=== PATIENT | male | born 1990 | race American Indian/Alaskan Native ===

== ENCOUNTER 2020-08-06 11:43 | Emergency (ER) | payer BC ==
[2020-08-06] MEDS ORDERED: ASPIRIN 325 MG TAB PO ONE ×2 (12:09→17:04)
--- NOTE | 2020-08-06 12:49 | XRay Report ---
CHEST 2 VIEWS INDICATION: chest pain and tightness after drug use. COMPARISON: FINDINGS: Support devices: None. Heart: Within normal limits. Lungs: No acute air space or interstitial disease. Pleura: No significant pleural effusion. No pneumothorax. Additional findings: None. IMPRESSION: 1. No acute findings. Signer Name: Tony Senior MD Signed: 08/06/2020 12:44 PM Workstation Name: [id number]
[2020-08-06 12:59] LABS: Amphetamine Screen,Urine Negative; Benzodiazepines Screen,Urine Negative; Cannabinoid Screen,Urine Negative; Methadone Screen,Urine Negative; Opiate Screen,Urine Negative
[2020-08-06 13:17] LABS: Basophils % (Auto) 0.6 % (0.0-1.8); Eosinophils % (Auto) 0.2 % (0.0-4.3); Hematocrit 40.5 % (35.5-45.6); Hemoglobin 13.7 gm/dl (11.8-15.2); Lymphocytes # (Auto) 1.7 K/mm3 (1.2-5.4); Lymphocytes % (Auto) 20.4 % (13.4-35.0); Mean Corpuscular HGB Conc 34 % (32-34); Mean Corpuscular Volume 91 fl (84-94); Monocytes # (Auto) 0.5 K/mm3 (0.0-0.8); Monocytes % (Auto) 6.1 % (0.0-7.3); Platelet Count 299 K/mm3 (140-440); Red Blood Count 4.48 M/mm3 (3.65-5.03); Red Cell Distribution Width 14.2 % (13.2-15.2)
[2020-08-06 13:38] LABS: Alanine Aminotransferase 34 units/L (7-56); Albumin 4.8 g/dL (3.9-5); BUN/Creatinine Ratio 10; Blood Urea Nitrogen 8 mg/dL (9-20); Calcium 9.9 mg/dL (8.4-10.2); Hemolysis Index 5
[2020-08-06 13:56] LABS: Cocaine Screen,Urine Positive
--- NOTE | 2020-08-06 13:56 | Emergency Department Report ---
ED General Adult HPI - General Chief complaint: Overdose Stated complaint: CHEST PAIN, FAST HEART BEAT, SOB Time Seen by Provider: 08/06/20 13:24 Source: patient Mode of arrival: Ambulatory Limitations: No Limitations - History of Present Illness Initial comments: 30-year-old male patient presents to the emergency department with complaints of chest tightness, palpitations, and shortness of breath starting last night. Prior to the onset of his symptoms, patient was at a [employer], where his friends convinced him to try an unknown drug. Patient states he took a pill by mouth. He did not inject or inhale any substances. He has not used any illicit amado bstances in over 12 hours. His shortness of breath and palpitations have resolved but his chest tightness persists. No history of hypertension, diabetes, hyperlipidemia. Denies fever, chills, cough, syncope, seizure, lower extremity pain/swelling. Denies all other complaints at this time. - Related Data Allergies Allergy/AdvReac Type Severity Reaction Status Date / Time No Known Allergies Allergy Unverified 08/06/20 12:04 ED Review of Systems ROS: Stated complaint: CHEST PAIN, FAST HEART BEAT, SOB Other details as noted in HPI Other: GENERAL: Negative for fever, chills, weight change, anorexia, fatigue. ENT: Negative for ear pain, difficulty hearing, sore throat, nasal congestion, epistaxis. CARDIOVASCULAR: Positive for chest pain and palpitations PULMONARY: Positive for shortness of breath. GASTROINTESTINAL: Negative for abdominal pain, nausea, vomiting, diarrhea, c onstipation. MUSCULOSKELETAL: Negative for joint pain, joint swelling, myalgias, back pain, neck pain. NEUROLOGICAL: Negative for headache, seizure, syncope, paresthesias, weakness. INTEGUMENTARY: Negative for erythema, rash, diaphoresis, laceration, ecchymosis. HEMATOLOGICAL: Negative for hemoptysis, hematemesis, hematochezia, hematuria. PSYCHIATRIC: Negative for hallucinations, suicidal ideation, homicidal ideation, anxiety, depression. ED Past Medical Hx - Past Medical History Previous Medical History?: No - Surgical History Past Surgical History?: No - Social History Smoking Status: Current Every Day Smoker Substance Use Type: Alcohol, Marijuana ED Physical Exam - General Limitations: No Limitations - Other Other exam information: General: Awake and alert. No acute distress. Head: Atraumatic, normocephalic. Eyes: EOMI. Pupils are equal and round. Normal sclera and conjunctiva. ENT: Oral mucosa is moist. Normal pharyngeal exam. Neck: Supple. No lymphadenopathy. Pulmonary: No respiratory distress. Clear to auscultation bilaterally. Cardiac: Regular rate and rhythm. Pulses are palpable and equal bilaterally. No lower extremity cyanosis or edema. Skin: Warm and dry. No rashes. Abdomen: Soft, non-tender, non-protuberant. No guarding, rigidity, or rebound. Bowel sounds are normal. No organomegaly or masses noted. Back: Normal alignment. No CVA tenderness. Extremities: Symmetrical. Full range of motion intact. Neurological: Alert and oriented, appropriately interactive, no focal deficits. Psych: Cooperative. Appropriate mood and affect. Speech is evenly metered. Thoughts are logically construed. ED Course Vital Signs 08/06/20 08/06/20 12:05 17:20 Temperature 98.4 F Pulse Rate 108 H 78 Respiratory 20 15 Rate Blood Pressure 145/93 Blood Pressure 140/93 [Left] O2 Sat by Pulse 100 100 Oximetry ED Medical Decision Making - Lab Data Result diagrams: 08/06/20 12:39 08/06/20 12:39 - EKG Data 08/06/20 13:56 EKG shows normal sinus rhythm with a ventricular rate of 90 bpm. Left axis deviation. Normal OH interval. Normal QT interval. Good R wave progression. No ST segment changes. Over read by attending emergency physician, who agrees with this interpretation. 08/06/20 18:51 EKG shows normal sinus rhythm with a ventricular rate of 84 bpm. Otherwise unchanged from prior tracing. Over read by attending emergency physician, who agrees with this interpretation. - Medical Decision Making Differential diagnosis including but not limited to: acute coronary syndrome, cardiac arrhythmia, pericarditis, pericardial effusion/cardiac tamponade, pneumothorax, pleural effusion, pulmonary embolism, pneumonia, valvular disease Patient presents to the emergency department with signs and/or symptoms that arise low risk clinical suspicion for pulmonary embolism. The patient has none of the following clinical criteria: age >50, heart rate >100, room air O2 saturation <94%, history of DVT/PE, recent trauma/surgery, hemoptysis, exogenous estrogen, or signs/symptoms of DVT. As a result, this patient has very low probability of pulmonary embolism and further testing is not indicated. On reevaluation, patient remains stable and symptoms have improved. Tachycardia resolved. His dyspnea and palpitations have resolved. States his chest tightness is "better, but I can still feel it." It has been over 12 hours since his last illicit substance use. Urine drug screen positive for cocaine. Initial and repeat troponin within normal limits. Initial and repeat EKG without acute injury pattern. Given aspirin in the emergency department. Outside of his social history, patient does not have any other cardiac risk factors. Presentation consistent with coronary vasospasm secondary to cocaine use. 17:15: Case discussed with attending emergency physician, who recommends consultation with hospitalist. 17:20: Case discussed with hospitalist, who agrees to evaluate patient in the emergency department to determine need for admission. 18:29: Hospitalist has evaluated the patient and deemed him an appropriate candidate for discharge home. Repeat exam is unremarkable and benign. History, exam, diagnostic testing, and current condition do not suggest worrisome pathology to warrant further testing, continued ED treatment, admission, or surgical evaluation at this point. Given the low probability of a significant medical illness, it would be more likely to result in harm than benefit to perform further testing at this stage. Discussed findings, presumptive diagnosis, need for follow-up and specific signs/symptoms that should prompt immediate return to the emergency department. Instructions were explained in detail to the patient in addition to giving written discharge information. Patient expressed understanding and was given the opportunity to ask questions, all of which were satisfactorily answered prior to discharge home. Critical care attestation.: If time is entered above; I have spent that time in minutes in the direct care of this critically ill patient, excluding procedure time. ED Disposition Clinical Impression: History of cocaine use Chest pain Qualifiers: Chest pain type: unspecified Qualified Code(s): R07.9 - Chest pain, unspecified Disposition: - TO HOME OR SELFCARE Is pt being admited?: No Does the pt Need Aspirin: No Condition: Stable Instructions: Nonspecific Chest Pain, Adult, [id number] Additional Instructions: Take Tylenol every 4 hours as needed for pain. Please discontinue illicit drug use. Follow-up with primary care provider and/or general merchandise salesperson this week. Call Saturday to schedule an appointment. See referral information below. Return to the emergency department immediately for new or worsening symptoms. Specifically, return to the emergency department immediately for fever, worsening chest pain, difficulty breathing, palpitations, loss of consciousness, or any other concerns. Referrals: SKIP MCCURDY MD [Staff Physician] - 3-5 Days [facility] [Provider Group] - 3-5 Days [facility] [Provider Group] - 3-5 Days REESE TAM MD [Staff Physician] - 3-5 Days Time of Disposition: 18:44
[2020-08-06 17:21] VITALS: BP 140/93
--- NOTE | 2020-08-06 18:31 | Event Note ---
Date: 08/06/20 Patient comes in with chest tightness . 2 troponins are negative patient has drug screen is positive for cocaine Chest pain secondary to vasospasm Because the 2 troponins are negative patient can be discharged home Patient to be counseled about cocaine use and its effects on the heart especially vasospasm causing angina/chest pain Patient will be discharged home Discharge diagnosis Coronary vasospasm secondary to cocaine
--- NOTE | 2020-08-11 09:38 | Electrocardiograph Report ---
[facility] Test Date: 2020-08-06 Test Time: 12:19:38 Pat Name: HAJA BUSTOS Department: Room: Gender: M Account General Manager: JOSELUIS GUADARRAMAB: 1990 Requested By: ROC CAUSEY Order Number: [id number] Reading MD: Danny Simpson Measurements Intervals [place] Rate: 90 P: 51 DC: 138 QRS: -31 QRSD: 106 T: 86 QT: 367 QTc: 448 Interpretive Statements Sinus rhythm Probable left atrial enlargement Inferior infarct, old Tall R wave in V2, consider RVH or PMI No previous ECG available for comparison Electronically Signed On 08-11-2020 9:38:21 EDT by Danny Simpson
--- NOTE | 2020-08-11 09:40 | Electrocardiograph Report ---
[facility] Test Date: 2020-08-06 Test Time: 16:41:14 Pat Name: HAJA BUSTOS Department: Room: Gender: M [employer] Team Member: JOSELUIS : 1990 Requested By: KAYLEN LARA Order Number: [id number] Reading MD: Danny Simpson Measurements Intervals [place] Rate: 75 P: 32 IN: 139 QRS: -32 QRSD: 122 T: 85 QT: 397 QTc: 443 Interpretive Statements Sinus rhythm Vent pre-excitat'n(WPW), left acces'y pathway No previous ECG available for comparison Electronically Signed On 08-11-2020 9:39:46 EDT by Danny Simpson
== END 2020-08-06 18:49 | disposition home or self-care (01) ==
LOC: ED 11:43
DX: R07.89 Other chest pain (principal); F14.10 Cocaine abuse, uncomplicated; F17.200 Nicotine dependence, unspecified, uncomplicated; F12.10 Cannabis abuse, uncomplicated
CPT/HCPCS: 36415; 71046; 80053; 80307; 84484; 85025; 93005